=== PATIENT | male | born 1985 | race African-American/Black ===

== ENCOUNTER 2018-08-09 12:20 | Emergency (ER) | payer SELFPAY ==
[2018-08-09] MEDS: AZITHROMYCIN 500 MG TAB PO (13:03)
[2018-08-09] MEDS: CEFTRIAXONE 250 MG INJ IM (13:03)
== END 2018-08-09 13:38 | disposition home or self-care (01) ==
LOC: FTE 12:20
DX: Z20.2 Contact with and (suspected) exposure to infections with a predominantly sexual mode of transmission (principal)
CPT/HCPCS: 87591; 96372; 99284-25